=== PATIENT | male | born 1965 | race Caucasian/White ===

== ENCOUNTER 2021-05-02 17:34 | Emergency (ER) | payer OTHER ==
[~2021-05-02] VITALS: Ht 177.8 cm; Wt 70.0 kg
[2021-05-02] MEDS ORDERED: AMOX1TAB16 PO (20:10)
[2021-05-02] MEDS ORDERED: IBUP-2070 PO (20:56)
[2021-05-02 21:04] VITALS: BP 115/68
== END 2021-05-02 21:11 | disposition home or self-care (01) ==
LOC: EMS 17:41
DX: S61.452A Open bite of left hand, initial encounter (principal); W54.0XXA Bitten by dog, initial encounter; Y93.89 Activity, other specified; Y92.89 Other specified places as the place of occurrence of the external cause; Y99.8 Other external cause status
CPT/HCPCS: 99283